=== PATIENT | female | born 1945 | race Caucasian/White ===

== ENCOUNTER 2024-05-10 21:47 | Emergency (ER) | payer MEDICARE, OTHER, SELFPAY ==
[2024-05-10] VITALS (10 sets, daily range): BP systolic 147–172; BP diastolic 62–95; PULSE 72–75
--- NOTE | 2024-05-10 22:20 | ED.GENMED ---
History of Present Illness
<ST BriandaNV - Last Filed: 05/10/24 22:52>
General
Chief Complaint: Fainting/Passed Out
Time Seen by Provider: 05/10/24 21:59
History of Present Illness
History of Present Illness:
Pt is an 78 y/o female with PMHx of HTN and irregular heart beat presenting for a syncopal episode. Pt states she was at a [employer] for her niece when she began to feel hot and dizzy. She states she stood up to get some air and she passed out, hitting
the back of her head. Her son states she lost consciousness for about 30 seconds to a minute. She states that 5 minutes later she got up to use the bathroom and passed out again for another 30 seconds. She states that this has happened to her one
other time in the past about 3 years ago while shopping. She states that today she drank around 2 and a half glasses of water and a glass of wine. She states she rarely drinks alcohol and does not smoke or use any illicit drugs. She denies any chest
pain, SOB, abdominal pain, nausea, vomiting, headaches, fevers, or urinary symptoms.
<Neptali Esqueda DO - Last Filed: 05/11/24 00:49>
General
Source: patient
Phy Exam
<ST BriandaNV - Last Filed: 05/10/24 22:52>
Physical Exam
Physical Exam:
GENERAL: Alert , in no apparent distress
Head: normocephalic and free of any lumps, lesions, lacerations.
EYE: pupils equal and reactive .
Throat: Airway intact, no exudates
NECK: Supple, no significant adenopathy.
CARDIAC: Regular rate and rhythm .
LUNGS: Clear breath sounds bilaterally, no acute respiratory distress, no wheezes/rales/rhonchi
ABDOMEN: Soft, nondistended, nontender, no cvat
NEUROLOGICAL: Alert and oriented, no focal neuro deficits
SKIN: Warm and dry, skin intact.
MUSCULOSKELETAL: No edema, well perfused.
PSYCH: Normal and appropriate interaction.
Course
<XANDER Lamar - Last Filed: 05/10/24 22:52>
Orders/Labs/Results
Orders:
Orders
05/10/24 21:50
Electrocardiogram (*1) Urgent
Reason for Study: Syncope
EKG- Treatment ONCE
05/10/24 22:08
Complete Blood Count/With Diff Urgent
Comprehensive Metabolic Panel Urgent
05/10/24 22:09
Orthostatic VS- Treatment ONCE
05/10/24 22:12
Prothrombin Time Urgent
Troponin I Urgent
05/10/24 22:44
CT Head W/o Iv Contrast Urgent
Comment:
Reason For Exam: head strike
05/10/24 22:46
0.9% Sodium Chloride 1000 ml [Nss] 1,000 ml IV BOLUS
Abnormal Lab Results
05/10/24
22:08
Hgb 11.7 L g/dL
(12.0-16.0)
Hct 33.5 L %
(37.0-47.0)
MCV 77.4 L fL
(81.0-99.0)
MPV 10.9 H fL
(7.4-10.4)
Absolute Monos (auto) 0.8 H 10^3/uL
(0.1-0.6)
Monocytes % 11.6 H %
(1.7-9.3)
Sodium 131 L mmol/L
(135-145)
Carbon Dioxide 20 L mmol/L
(22-30)
BUN 25 H mg/dl
(7-17)
Creatinine 1.2 H mg/dL
(0.6-1.0)
Glucose 219 H mg/dl
(70-99)
Alkaline Phosphatase 127 H U/L
(38-126)
05/10/24 22:08
05/10/24 22:08
Vital Signs
Initial and Last Documented VS:
Initial Vital Signs
Temp Pulse Resp BP Pulse Ox
97.6 F 67 18 167/64 99
05/10/24 21:50 05/10/24 21:50 05/10/24 21:50 05/10/24 21:50 05/10/24 21:50
Last Documented Vital Signs
Temp Pulse Resp BP Pulse Ox
97.6 F 76 24 151/75 97
05/10/24 21:50 05/10/24 23:31 05/10/24 23:31 05/10/24 23:30 05/10/24 23:10
<Neptali Esqueda, - Last Filed: 05/11/24 00:49>
Orders/Labs/Results
Orders:
Orders
05/10/24 21:50
Electrocardiogram (*1) Urgent
Reason for Study: Syncope
EKG- Treatment ONCE
05/10/24 22:08
Complete Blood Count/With Diff Urgent
Comprehensive Metabolic Panel Urgent
05/10/24 22:09
Orthostatic VS- Treatment ONCE
05/10/24 22:12
Prothrombin Time Urgent
Troponin I Urgent
05/10/24 22:44
CT Head W/o Iv Contrast Urgent
Comment:
Reason For Exam: head strike
05/10/24 22:46
0.9% Sodium Chloride 1000 ml [Nss] 1,000 ml IV BOLUS
Abnormal Lab Results
05/10/24
22:08
Hgb 11.7 L g/dL
(12.0-16.0)
Hct 33.5 L %
(37.0-47.0)
MCV 77.4 L fL
(81.0-99.0)
MPV 10.9 H fL
(7.4-10.4)
Absolute Monos (auto) 0.8 H 10^3/uL
(0.1-0.6)
Monocytes % 11.6 H %
(1.7-9.3)
Sodium 131 L mmol/L
(135-145)
Carbon Dioxide 20 L mmol/L
(22-30)
BUN 25 H mg/dl
(7-17)
Creatinine 1.2 H mg/dL
(0.6-1.0)
Glucose 219 H mg/dl
(70-99)
Alkaline Phosphatase 127 H U/L
(38-126)
05/10/24 22:08
05/10/24 22:08
Vital Signs
Initial and Last Documented VS:
Initial Vital Signs
Temp Pulse Resp BP Pulse Ox
97.6 F 67 18 167/64 99
05/10/24 21:50 05/10/24 21:50 05/10/24 21:50 05/10/24 21:50 05/10/24 21:50
Last Documented Vital Signs
Temp Pulse Resp BP Pulse Ox
97.6 F 76 24 151/75 97
05/10/24 21:50 05/10/24 23:31 05/10/24 23:31 05/10/24 23:30 05/10/24 23:10
<XANDER Lamar - Last Filed: 05/10/24 22:52>
*Pulse Oximetry
Patient hypoxic: no
*EKG
Interpreted by ED Provider?: Yes
EKG Intrepretation Date: 05/10/24
Interpretation: abnormal
Comparison EKG: no comparison EKG present
Heart Rate: 63
Rate: normal
Rhythm: sinus and PVC's
[place]: normal axis
Interval: normal interval
QRS Pattern: normal QRS
Ischemia: no ischemia
*School Bus Operator Interpretation
Rate: School Bus Operator- N/A
*Critical Care Note
Total Time (30-74mins, 75-104mins- exclusive of procedures): Not Applicable
<Neptali Esqueda, DO - Last Filed: 05/11/24 00:49>
Update Note
Update Note:
Additional Information (per [facility]):
CT head without contrast
No comparison exam
IMPRESSION:
No acute intracranial hemorrhage.
No acute intracranial abnormality.
Mild atrophy.
Results finalized at 11:45 PM ET. Please call with any questions.
Rachna Rincon M.D.
This report has been electronically signed and verified by the Radiologist whose name is printed above.
ED Attending Note
<Neptali Esqueda, DO - Last Filed: 05/11/24 00:49>
ED Attending Note
Patient seen and examined by attending physician: Yes
I performed the substantive portion of visit, reviewed & personally made and approve the management plan that is documented in note by myself or GABO.: Yes
ED Attending Note:
Pleasant 78-year-old female who presents with syncopal episode. 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 Upon getting up she passed out and hit the back of her head. She did lose consciousness for 30 seconds to a
minute. Patient states that it happened the second time. Patient does report she had a similar syncopal event 1 other time in the past. Patient was seen in conjunction with the PA student. I have reviewed and agree with the history and treatment
plan presented. On my independent physical exam, patient is awake, alert, and oriented x3
-
Portions of this chart may have been created with voice recognition software.� Occasional wrong word or��sound alike� substitutions may have occurred due to the inherent limitations of voice recognition software.
Discharge Plan
Departure
Patient Disposition: Home (Routine Discharge)
Date of Disposition: 05/11/24
Time of Disposition: 00:47
Patient with high blood pressure during this ER visit?: Yes
Condition: Good
Discharge Problem:
Syncope
Instructions: Syncope (Fainting) (DC), BLOOD PRESSURE
Prescriptions:
No Action
losartan 50 mg Tablet
50 mg PO DAILY
amlodipine 10 mg Tablet
10 mg PO DAILY
omeprazole 20 mg Capsule,Delayed Release(Dr/Ec)
20 mg PO DAILY
hydrochlorothiazide 25 mg Tablet
25 mg PO DAILY
cetirizine [Zyrtec] 10 mg Tablet
10 mg PO DAILY PRN (Reason: allergies)
metoprolol succinate 50 mg Tablet Extended Release 24 Hr
50 mg PO DAILY
PreserVision AREDS-2 250-90-40-1 mg Capsule
1 tab PO [facility]HS
Referrals:
MARIANA BELL [Other]
Activity Restrictions/Additional Instructions:
It was a pleasure meeting you and taking part in your care. We hope for your continued healing and wellness.
Please read discharge instructions in their entirety. However, they are for general education and may not describe your exact diagnosis at discharge. Information on your ER visit and medical conditions were discussed with you along with appropriate
follow up information...
If indicated, please take your medications as instructed and indicated on discharge paperwork.
Please schedule a follow up appointment as directed. Call to schedule an appointment
Please return to the emergency department with ANY change in, persisting, or worsening of symptoms. If any of your symptoms do not improve, or persist, or become more severe within 6-12 hours, please return to the emergency department for further
care.
Please return to the emergency department if you develop a headache, neck pain/stiffness, fever greater than 100.4F, chest pain, shortness of breath, persistent nausea, vomiting, slurred speech, difficulty walking, numbness/tingling, weakness, signs
of infection or any other symptoms that are worrisome to you.
If you have any questions or concerns please do not hesitate to call the Hospital at or E-mail me directly at [email or web address]
Interventions
Interventions:
*Risk Screen - Suicide Last Done: 05/10/24 21:50
*General Assessment Last Done: 05/10/24 21:50
*Neglect/Abuse Screening Last Done: 05/10/24 21:50
ED- Fall Risk Assessment Last Done: 05/10/24 21:58
ED- Cardiac Assessment Last Done: 05/10/24 21:58
ED- Neurological Assessment Last Done: 05/10/24 21:58
Discharge Date and Time
Print Language: TRISTANIAN
[2024-05-10 22:24] LABS: % Basophils 0.7 % (0-2); % Eosinophils 2.9 % (0-6); % Immature Granulocytes 0.3 % (0-0.5); % Lymphocytes 34.5 % (20.5-51.1); % Monocytes 11.6 % (1.7-9.3); Absolute Basophils 0.1 10^3/uL (0-0.2); Absolute Eosinophils 0.2 10^3/uL (0-0.7); Absolute Lymphocytes 2.3 10^3/uL (1.2-3.4); Absolute Monocytes 0.8 10^3/uL (0.1-0.6); Absolute Neutrophils 3.4 10^3/uL (1.4-6.5); Hematocrit 33.5 % (37.0-47.0); Hemoglobin 11.7 g/dL (12.0-16.0); Mean Corp Hgb Conc. 34.9 g/dL (33.0-37.0); Mean Corpuscular Volume 77.4 fL (81.0-99.0); Mean Platelet Volume 10.9 fL (7.4-10.4); Nucleated Red Blood Cells % 0 %; Platelet Count 275 10^3/uL (130-400); Red Blood Cell Count 4.33 10^6/uL (4.20-5.40); Red Cell Dist. Width 14.2 % (11.5-14.5); White Blood Cell Count 6.8 10^3/uL (4.8-10.8)
[2024-05-10 22:34] LABS: INR 1.06; PT 13.8 Sec (11.4-14.6)
[2024-05-10 22:40] LABS: ALT (SGPT) 13 U/L (0-35); AST (SGOT) 22 U/L (14-36); Albumin 4.4 g/dl (3.5-5.0); Alkaline Phosphatase 127 U/L (38-126); Blood Urea Nitrogen 25 mg/dl (7-17); Calcium 9.2 mg/dl (8.4-10.2); Carbon Dioxide 20 mmol/L (22-30); Chloride 100 mmol/L (98-107); Glucose 219 mg/dl (70-99); Potassium 3.7 mmol/L (3.5-5.1); Sodium 131 mmol/L (135-145); Total Bilirubin 0.3 mg/dl (0.2-1.3); eGFR 45.76
[2024-05-10 22:50] LABS: Troponin I < 0.012 ng/ml
[2024-05-10] MEDS: NSS 1000 IV (23:18)
[2024-05-11] VITALS: BP 158/80
== END 2024-05-11 01:27 | disposition home or self-care (01) ==
LOC: EMR 21:47
PROVIDERS: Internal Medicine Gastroenterology; EMERGENCY PHYSICIAN Student in an Organized Health Care Education/Training Program
DX: R55 Syncope and collapse (principal); W22.8XXA Striking against or struck by other objects, initial encounter; I10 Essential (primary) hypertension
CPT/HCPCS: 99285; 70450; 80053; 84484; 85025; 85610; 93005